=== PATIENT | male | born 1985 | race Caucasian/White ===

== ENCOUNTER 2018-02-26 12:06 | Day surgery (SDC) | payer OTHER ==
[~2018-02-26] VITALS: Ht 172.7 cm; Wt 82.1 kg
--- NOTE | ~2018-02-26 | OR ---
[facility] [address], [place] [address] Draft DATE OF OPERATION: 02/26/2018 SURGEON: Kendell Andujar MD PREOPERATIVE DIAGNOSES: 1. Clinical gastroesophageal reflux longstanding. 2. Bowel habit problems predominantly constipation. POSTOPERATIVE DIAGNOSES: 1. Small hiatal hernia with minimal esophagitis. 2. Colon without sign of abnormality, ileum normal. PROCEDURE: 1. Esophagogastroduodenoscopy with biopsy. 2. Total colonoscopy to cecum with biopsy of ileum, cecum, and rectum. ANESTHESIA: Intravenous sedation, fentanyl 200 mcg, Versed 10 mg total. INDICATION: A 32-year-old white man a patient of Bennie FLOREZ of [facility] who was referred with problems of reflux, which he described since "age 11." He takes Prilosec with reasonably good benefit for this. He has no dysphagia or hematemesis. As regard the colon, he has complaints of sometimes small bowel movements, occasionally large bowel movements. No actual diarrhea particularly, and no blood per rectum, but bowel habits that are not in keeping with his ideal. On that basis, he is admitted also for colonoscopy. He understands the risks of bleeding, infection, and perforation related to upper endoscopy, and colonoscopy and wished to proceed. FINDINGS: Upper endoscopy showed only a small hiatal hernia and minimal esophagitis. There was no evidence of H pylori, gastric outlet obstruction, or other problem. Biopsies were obtained of the duodenum, stomach and esophagus. On colonoscopy, the prep was quite excellent. Complete colonoscopy was undertaken to the cecum without question. Intubation of the ileum was accomplished as well. The ileum was normal. The colon was normal as well. Biopsies were obtained to assess for occult colitis. PATIENT NAME: ANURAG FIGUEROA OPERATIVE REPORT DATE OF : [birth year] REPORT #: [id number] PHYSICIAN: KENDELL ANDUJAR MD PCP: Bennie Nicole Jr, PA-C REPORT IS CONFIDENTIAL AND NOT TO BE RELEASED WITHOUT AUTHORIZATION [facility] [address], [place] [address] Draft DESCRIPTION OF PROCEDURE: The patient was brought to the endoscopy suite and placed in lateral decubitus position given intravenous sedation to the point of slurred speech and nystagmus. The flexible upper endoscope was passed by hypopharynx after hypopharyngeal anesthesia had been administered previously, and a bite block placed. Vocal cords appeared normal. Scope was advanced to the esophagus. Throughout its length it appeared reasonably normal including the lower part. There was no sign of Hutson's epithelium. Scope was passed in the stomach, which was insufflated with air. Stomach appeared normal as did the pylorus. The scope was passed through the pylorus into the duodenum, which was normal. Biopsies were then taken of the duodenum. The scope was withdrawn and biopsies taken of the antrum for both MAX and pathologic testing. Retroflexed view showed a small hiatal hernia. The scope was withdrawn to the distal esophagus where biopsies were obtained. Scope was further withdrawn. There were no other findings of concern. The table was rotated and additional sedation given. Digital rectal examination was performed which was normal. The GrowBLOX video colonoscope was passed in the rectum and manipulated throughout the colon ultimately intubating the cecum itself. The ileocecal valve and appendiceal orifice were normal. The scope was advanced into the ileum without too much problem. Ileum mucosa was entirely normal. Biopsies were obtained nevertheless. Scope was withdrawn. Biopsies then taken of the cecum. Further withdrawal of scope showed no sign of polyps, diverticular formation, colitis, or cancer. Rectum was normal as well. Biopsies were obtained there. Scope was removed. The patient was taken to recovery in good condition. CONCLUDING DIAGNOSES: 1. Gastroesophageal reflux with small hiatal hernia, clinically managed well with Prilosec. 2. Bowel habit changes of uncertain degree of acuity without sign of inflammatory bowel disease, neoplasm, or diverticular formation. We would recommend Citrucel 1 tablespoon daily. He will return to the ongoing care of Bennie Nicole. I will review his pathology report. If he has other problems or is in need of further assistance regarding his bowel management, he will let me know. MD DANIELA Levin/CATALINO /[id number] PATIENT NAME: ANURAG FIGUEROA OPERATIVE REPORT DATE OF : [birth year] REPORT #: [id number] PHYSICIAN: KENDELL ANDUJAR MD PCP: Bennie Nicole Jr, PA-C REPORT IS CONFIDENTIAL AND NOT TO BE RELEASED WITHOUT AUTHORIZATION [facility] [address], [place] [address] Draft cc: Bennie Nicole Jr, PA-C Copies: Bennie Nicole Jr, PA-C ~ PATIENT NAME: ANURAG FIGUEROA VIRY OPERATIVE REPORT DATE OF : [birth year] REPORT #: [id number] PHYSICIAN: KENDELL ANDUJAR MD PCP: Bennie Nicole Jr, PA-C REPORT IS CONFIDENTIAL AND NOT TO BE RELEASED WITHOUT AUTHORIZATION
[2018-02-26] MEDS ORDERED: PRILOSEC OTC20 MG PO (12:33)
--- NOTE | 2018-02-26 17:45 | NUR ---
02/26/18 8461 Kezia Marion 0732-PATIENT ARRIVED TO PACU ON 3L NC O2 SAT 94% PATIENT DROWSY OPENS EYES DENIES PAIN OR NAUSEA. ENCOURAGED TO PASS FLATUS. RR EVEN.
== END 2018-02-26 18:26 | disposition home or self-care (01) ==
LOC: OPS 12:06 → DS 12:06 → OPS 14:00 → DS 14:00 → OPS 18:26
PROVIDERS: Surgery
PROC: 0DB58ZX Excision of Esophagus, Via Natural or Artificial Opening Endoscopic, Diagnostic (ICD-10-PCS; 2018-02-26)
PROC: 0DBH8ZX Excision of Cecum, Via Natural or Artificial Opening Endoscopic, Diagnostic (ICD-10-PCS; 2018-02-26)
PROC: 0DBB8ZX Excision of Ileum, Via Natural or Artificial Opening Endoscopic, Diagnostic (ICD-10-PCS; 2018-02-26)
PROC: 0DB98ZX Excision of Duodenum, Via Natural or Artificial Opening Endoscopic, Diagnostic (ICD-10-PCS; principal; 2018-02-26 14:00)
PROC: 0DB78ZX Excision of Stomach, Pylorus, Via Natural or Artificial Opening Endoscopic, Diagnostic (ICD-10-PCS; 2018-02-26 14:00)
DX: K52.9 Noninfective gastroenteritis and colitis, unspecified (principal); K21.0 Gastro-esophageal reflux disease with esophagitis; K31.89 Other diseases of stomach and duodenum; K59.09 Other constipation; Z88.5 Allergy status to narcotic agent; Z79.899 Other long term (current) drug therapy
CPT/HCPCS: 99153; G0500; J2250; J3010; J7120

== ENCOUNTER 2018-07-05 18:00 | Inpatient (IN) | payer OTHER ==
[~2018-07-05] VITALS: Ht 172.7 cm; Wt 82.1 kg
[~2018-07-05 18:00] MED LIST: PRILOSEC OTC20 MG PO
[2018-07-17] MEDS ORDERED: PREVACID30 M1 PO (14:53)
[2018-07-17] MEDS ORDERED: TRIAMCINOLONE A80 GM TOP (14:54)
--- NOTE | 2018-07-18 15:31 | NUR ---
07/18/18 1531 Brit Cummings 1503- PT ARRIVES TO PACU FROM OR ON 6L VIA MASK O2 SATS 100%. RESP EVEN AND UNLABORED. PT RESPONDS TO VERBAL STIMULUS. PT UNABLE TO RATE PAIN USING PAIN SCALE BUT VERBALIZES "VERY PAINFUL". NATIONAL EXPANSION RECRUITER AT BEDSIDE AND MEDICATES PATEINT FOR PAIN. 25 MCG FENTANYL. OP SITE DRESSING C/D/I. SCDS ON AND APPLIED. WALL SUCTION ON TO LOW-INTERMITTENT. CORONADO CATH IN PLACE. 1505- PT TITRATED TO RA BUT SATS DROP TO 88% AFTER FENTANYL ADMINISTRATION. PT PLACED BACK ON 6 L VIA MASK. SATS REMAIN ABOVE 90%. 1516 - PT TITRATED TO 4 L NC WITH SATS ABOVE 90%. PT REPORTS CONTINUED PAIN.\\ 1520- PT MEDICATED FOR PAIN SEE EMAR.
--- NOTE | 2018-07-18 16:20 | NUR ---
NEW ADMIT TO THE FLOOR. PT AWAKE, ALERT AND ORIENTED X3. PT SITTING UP IN BED. NG TO RIGHT NARE, HOOKED UP TO LOW INTERMITTENT SUCTION, IMMEDIATE RETURN OF MABEL BLOOD IN NG CANISTER; APPROX 50ML. PT ON RA, OXYGEN SAT LEVEL 98%. VS TAKEN AND ARE STABLE. DRESSING TO STOMACH X3; LARGE MIDLINE IN WHICH IS COVERED WITH MEPILEX AND AN OBSITE; CDI. LEFT/RIGHT LATERAL ABD HAS AN ON-Q PAIN PUMP; DRESSINGS ARE OBSITE(S) AND SMALL SAROSANG DRAINAGE NOTED UNDER DRESSINGS. PT REPORTS PAIN LEVEL IS TOLERABLE AT THIS TIME; GOAL IS 4/10. AT BEDSIDE. CORONADO INTACT, PATENT AND DRAINING APPROP. PT ORIENTED TO ROOM AND CALL LIGHT. NO NEEDS. WILL CONTINUE TO MONITOR PT.
--- NOTE | 2018-07-18 16:47 | NUR ---
ICE GIVEN TO PT. PT AWAKE, HOB ELEVATED. PERSONAL SUPPLIES WITHIN REACH OF PT. SCD'S INTACT.
--- NOTE | 2018-07-18 17:13 | NUR ---
OFFICE HELPER STARTED, EDUCATION PROVIDED TO PT. PT REPORTING 5/10 ABD PAIN. PT ON RA, RESP EVEN AND NON LABORED, 02 SAT LEVEL IS 97% ON RA. PERSONAL SUPPLIES AND CALL LIGHT WITHIN REACH. HOB ELEVATED IN HIGH FOWLERS POSITION. PT RESTING ON AND OFF. PERSONA SUPPLIES AND CALL LIGHT WITHIN REACH.
--- NOTE | 2018-07-18 17:18 | NUR ---
PT RESTING, EYES CLOSED. PT REMAINS ON RA, RESP EVEN AND NON LABORED, SAT LEVEL IS 98% ON RA. PT APPEARS COMFORTABLE, WITHOUT NOTABLE PAIN. HOB ELEVATED. CORONADO INTACT, PATENT AND DRAINING CLEAR YELLOW URINE. PERSONAL SUPPLIES AND CALL LIGHT WITHIN REACH OF PT. NO NEEDS AT THIS TIME.
--- NOTE | 2018-07-18 17:56 | NUR ---
PT ON RA. NG TO RIGHT NARE; LIS. DILAUDID SUPERVISOR BLOOD. VS STABLE. HYPO BT. CLEAR LIQUID DIET; TOLERATING ICE CHIPS.
--- NOTE | 2018-07-18 18:15 | NUR ---
PT SLEEPING ON/OFF, RESPIRATIONS EVEN AND NON LABORED. OXYGEN SAT LEVEL IS 98%. CORNOADO INTACT, PATENT AND CLEAY YELLOW URINE. PERSONAL SUPPLIES AND CALL LIGHT WITHIN REACH.
--- NOTE | 2018-07-18 19:20 | NUR ---
RECEIVED REPORT FROM PANFILO SANTOS. VITAL SIGNS TAKEN. MEPILEX COVERING INCISION, SLIGHT AMOUNT OF SHADOWING. REPORTS CAMPUS RECRUITER IS COVERING PAIN. WHITEBOARD UPDATED. CALL LIGHT WITHIN REACH.
--- NOTE | 2018-07-18 19:40 | NUR ---
CALL LIGHT ON. pt REPORTING "CHEST PAIN". EXPLAINED THAT PAIN FEELS LIKE HE HAS TO BURP. NG TUBE DRAINING BROWN LIQUID. pt ABLE TO BURP AND REPORTED FEELING BETTER AND THAT "CHEST PAIN" WAS RESOLVING. INSTRUCTED TO CALL AGAIN IF HE HAD SIMILAR PRESSURE AGAIN.
--- NOTE | 2018-07-18 20:29 | NUR ---
ASSESSMENT AND MEDICATIONS DUE. ASSESSMENT DONE. pt DENIES "CHEST PAIN". RATES PAIN 1 TO 4/10. MEPLEX SHOWS SLIGHT SHADOWING OTHERWISE, C/D/I. SPITTING UP RED MUCUS. pt HAD EPISODE OF PAIN IN CENTER OF CHEST AFTER DRINKING WATER. PAIN RESOLVED AFTER BELCHING. EDUCATED ON TEMPERATURE OF LIQUIDS AND TAKING IT SLOW. CORONADO CARE DONE. VITALS SIGNS TAKEN. PUNCTURE SITES FOR ON-Q COVERED WITH OPSITE C/D/I. PISTON MAKER BUTTON WITHIN REACH. SCDS ON. CALL LIGHT WITHIN REACH. NO FURTHER REQUESTS AT THIS TIME.
--- NOTE | 2018-07-18 23:42 | NUR ---
ROUNDED ON pt. REPORTED THAT PRESSURE IN STOMACH HAS EASED AND HE WILL CALL IF IT INCREASED. NG TUBE WAS IRRIGATED WITH 20 MLS WATER BY PANFILO UNDERWOOD. SUCTION IS ON LOW INTERMITTENT. CALL LIGHT WITHIN REACH.
--- NOTE | 2018-07-19 00:10 | NUR ---
MEDICATION DUE. GIVEN (SEE MAR). ASSESSMENT DONE. STATES PAIN IS CONTROLLED BY DRAWBRIDGE TENDER, DISCOMFORT IN CHEST FROM GAS. NO REQUESTS AT THIS TIME. CALL LIGHT WITHIN REACH.
--- NOTE | 2018-07-19 02:02 | NUR ---
VITALS AND I&OS DONE AND CHARTED. BEDSIDE TABLE AND CALL LIGHT IN REACH. PT NEEDS NOTHING AT THSI TIME.
--- NOTE | 2018-07-19 02:52 | NUR ---
PATIENT CALLED WITH C/O NAUSEA. 8MG OF IV ZOFRAN GIVEN. WILL HAVE PATIENT'S RN RE-EVALUATED IN 30N MINUTES.
--- NOTE | 2018-07-19 03:09 | NUR ---
KJ RN, IN ROOM. RECEIVED UPDATE ON pt CONDITION. pt REPORTS NAUSEA IS "GETTING BETTER". NG TUBE IRRIGATED WAS NOT EFFECTIVE. ON LOW INTERMITTENT SUCTION. DRAINING WELL. CALL LIGHT WITHIN REACH.
--- NOTE | 2018-07-19 04:11 | NUR ---
CALL LIGHT ON. pt REPORTED NG TUBE WAS NOT DRAINING. PLACEMENT VERIFIED WITH AIR. FLUSHED WITH 10 MLS OF WATER. REPOSITIONED TUBE TO USE GRAVITY FOR ASSISTANCE. NG TUBE DRAINING WELL, LIS. CALL LIGHT WITHIN REACH. NO FURTHER REQUESTS AT THIS TIME.
--- NOTE | 2018-07-19 05:07 | NUR ---
pt AWAKE MOST OF SHIFT. ON 2 L O2 VIA NC. NG TO RIGHT NARE, LIS. DILAUDID VIDEOTAPE SALES REPRESENTATIVE. HYPOACTIVE BOWEL TONES. CLEAR LIQUID DIET, TOLERATING ROOM TEMP WATER. NAUSEA MEDS X1. CORONADO, U/O QS. D5LR RUNNING AT 85 MLS/HR. SCDS. USES CALL LIGHT APPROPRIATELY.
--- NOTE | 2018-07-19 05:52 | NUR ---
ASSESSMENT DONE. MEDICATION GIVEN (SEE MAR). STATES PAIN IS "OKAY". NG IN RIGHT NARE, DRAINING TO LIS. NO REQUESTS AT THIS TIME. CALL LIGHT WITHIN REACH.
--- NOTE | 2018-07-19 06:01 | NUR ---
VITALS AND I&OS DONE AND CHARTED. BEDSIDE TABLE AND CALL LIGHT IN REACH.
--- NOTE | 2018-07-19 07:30 | NUR ---
PT AWAKE, IN BED IN HIGH FOWLERS POSITION. NG INTACT TO RIGHT NARE; LIS. RETURN OF DARK COFFEE COLORED STOMACH CONTENT DRAINING APPROP AT THIS TIME. PT REPORTING PAIN IS TOLERABLE IN ABD. NUMERICAL CONTROL PROGRAMMER DILAUDID IN USE; ONGOING EDUCATION PROVIDED. DRESSING TO ABD; CDI. ON-Q PUMP INTACT TO L/R LATERAL ABD. IV FLUIDS INFUSING. CORONADO INTACT, PATENT AND DRAINING CLEAR YELLOW URINE. PERSONAL SUPPLIES AND CALL LIGHT WITHIN REACH.
--- NOTE | 2018-07-19 09:15 | NUR ---
PATIENT IN BED WATCHING TV. VITAL SINGS AND I&O DONE. CALL LIGHT WITHIN REACH. NO OTHER NEEDS AT THIS TIME
--- NOTE | 2018-07-19 09:29 | NUR ---
PT AMBULATED IN HALLWAY WITH 1PA. PT TOLERATED WALK VERY WELL; 4 LAPS AROUNDS NURSES STATION AT THIS TIME.
--- NOTE | 2018-07-19 10:20 | NUR ---
SPOKE WITH NURSING STAFF. PATIENT IS INDEPENDENT AND HAS NO KNOWN NEED FOR CASE MANAGMENT AT THIS TIME. WILL DEFER ASSESSMENT. CONSULT WILL BE PUT IN IF NEED ARISES.
[2018-07-19] MEDS ORDERED: METAMUCIL660 GM PO (10:25)
--- NOTE | 2018-07-19 10:26 | NUR ---
MED REC COMPLETE WITH REFILL HISTORY AND PATIENT INTERVIEW.
--- NOTE | 2018-07-19 11:55 | NUR ---
PT REPORTED NG NOT FLUSHING. FLUSHED NG WITH 30ML FREE WATER; IMMEDIATE RETURN UPON CONNECTION LOW INTERMITTENT WALL SUCTION. PT REPORTS FEELING SOME PRESSURE RELIEF. PT SPITTING IMTERMITTENTLY SMALL AMOUNTS OF PINK ORAL SUCRETIONS. PT REPORTING NG TUBE IS VERY BOTHERSOME TO HIM. PT ALSO REPORTING CORONADO IS BOTHERSOME TO HIM WELL, " IT IS BURNING". WILL MONITOR PT. ENCOURAGED PT TO TRY NOT TO MOVE THE TUBES AROUND FOR COMFORT. TORADOL ADMIN AT THIS TIME FOR PAIN.
--- NOTE | 2018-07-19 12:35 | NUR ---
PT SITTING UP IN BED-ALERT, ORIENTED AND SUPPORTED BY HIS . PT RATHER MATTER OF FACT APPROACH TO ANSWERS. WHEN HE DISCOVERED MY TITLE, HE QUICKLY STATED HE IS "Bebe" AND POLITELY THANKED ME FOR COMING IN. EXTENDED A BLESSING, WILL FOLLOW NEEDED
--- NOTE | 2018-07-19 13:36 | NUR ---
PATIENT RESTING IN BED. IN ROOM. VITAL SIGNS AND I&O DONE. LOW OUTPUT. RN NOTIFIED. CALL LIGHT WITHIN REACH. NO OTHER NEEDS AT THIS TIME
--- NOTE | 2018-07-19 15:00 | NUR ---
PT COMPLAINT OF PAIN FROM CORONADO CATH, REQUESTING IT TO BE REMOVED. DR. ANDUJAR CALLED VERBAL ORDER TO DC CORONADO CATH AND DC NG TUBE, RBOV.
--- NOTE | 2018-07-19 15:15 | NUR ---
CORONADO REMOVED PER DOC ORDER. 9ML NS REMOVED FROM BALLOON. PT TOLERATED WELL, CAT TIP INTACT. NG ALSO REMOVED AT THIS TIME PER DOC ORDER; PT TOLERATED WELL ALSO. CATH TIP INTACT. PT REPORTING ABD PAIN OF 4/10, MANAGER GAME UTILIZED AT THIS TIME PER PT. PT IMMEDIATELY REPORTING SENSATION TO VOID. URINAL SUPPLIED. PERSONAL SUPPLIES AND CALL LIGHT WTIHIN REACH OF PT.
--- NOTE | 2018-07-19 16:20 | OR ---
[facility] [address], [place] [address] Signed DATE OF OPERATION: 07/18/2018 SURGEON: Kendell Andujar MD PREOPERATIVE DIAGNOSES: 1. Medically refractory gastroesophageal reflux with small hiatal hernia. 2. Episodic spontaneous regurgitation. POSTOPERATIVE DIAGNOSES: 1. Medically refractory gastroesophageal reflux with small hiatal hernia. 2. Episodic spontaneous regurgitation. PROCEDURES: 1. Hill repair (reconstruction of the gastroesophageal junction with posterior gastropexy). 2. Intraoperative manometrics. 3. Placement of On-Q pain pump catheter. ANESTHESIA: General endotracheal. ANESTHESIOLOGIST: Eduardo Parkinson CRNA. 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 and is a patient of GAUTAM Cohen, of [place], [place]. The patient has had rather significant long-standing essentially lifelong reflux problems. This includes spontaneous regurgitation in certain body positions and need for cyclic use of PPI medication. He has had no associated dysphagia. His evaluation included an upper endoscopy which confirmed small hiatal hernia and chronic distal esophagitis, but no evidence of Hutson epithelium as well as video esophagram confirming normal motility grossly but "massive reflux" as well as small hiatal hernia. He was admitted at this time to undergo Hill posterior gastropexy as a method of repair. He understands the risks of bleeding, infection, failure of the operation, long-term failure, dysphagia-either short or long-term, and nose are other alternatives to antireflux operation including laparoscopic approaches. Understanding this, he wished to proceed. Electronically Signed By: KENDELL ANDUJAR MD 07/19/18 3889 PATIENT NAME: ANURAG FIGUEROA OPERATIVE REPORT DATE OF : [birth year] REPORT #: [id number] PHYSICIAN: KENDELL ANDUJAR MD PCP: Bennie Nicole Jr, PA-C REPORT IS CONFIDENTIAL AND NOT TO BE RELEASED WITHOUT AUTHORIZATION [facility] [address], [place] [address] Signed FINDINGS: There was a fair amount of intra-abdominal fat, but not in excessive amount. The abdominal wall fat was not deep at all. The GE junction was somewhat patulous except in 2-3 cm in the esophageal hiatus. Anterior and posterior vagal nerve trunks were identified and preserved. Generous phrenoesophageal bundles were noted and the reconstructed GE junction was palpably quite optimal. Intraoperative manometric showed a peak pressure approximately 25 mmHg over a 4 cm segment with an optimal waveform. The spleen was normal as was the pancreas and the stomach and duodenum. There were no other intra-abdominal findings of concern. DESCRIPTION OF PROCEDURE: The patient was brought to the operating room, given a general endotracheal anesthetic. Preoperative antibiotic Ancef was given. Sequential compression device stockings used and heparin subcutaneously administered. A Fay catheter was placed. The abdomen was already partially clipped by the patient apparently. The abdomen was clipped and prepared with a chlorhexidine solution and draped sterilely. An incision was made inferior to the xiphoid and cephalad to the umbilicus. Dissection carried through 1.5 inches of abdominal wall fat, identifying easily the midline fascia. The abdomen was entered without problem. Intra-abdominal inspection showed no sign of ascites or carcinomatosis or other problems. Palpation of the GE junction did not confirm a nasally placed manometric nasogastric tube. This was later dealt with more fully. Invagination of the GE junction showed it to accommodate 2-3 fingers consistent with small hiatal hernia. Palpation of the spleen showed no posterior capsular adhesions. A small rolled laparotomy pack was placed behind it. An upper hand retractor was placed and the falciform ligament freed from the anterior abdominal wall as was the falciform ligament to the diaphragm itself. The left lateral segment of liver was freed with electrocautery. The lesser sac was incised and with due-care division extended cephalad toward the GE junction. There was a small phrenic vein branch directly onto the esophagus. This was dissected free with a right angle clamp and secured with 3-0 silk tie as well as 2 small clips and was divided allowing for more full dissection in the area. A Bookwalter retractor was attached to the lower aspect of the table. A malleable retractor was used to retract the left lateral segment to the right incorporating also the caudate lobe of the liver. The vena cava was widely exposed in this area. Using blunt electrocautery dissection, the phrenoesophageal ligament was freed from the right sky of the diaphragm, extended cephalad over the top of the esophagus. All due care was maintained to avoid trauma to the esophagus or surrounding structures. A Audrey clamp was applied to the proximal left sky of the diaphragm and the posterior Electronically Signed By: KENDELL ANDUJAR MD 07/19/18 0829 PATIENT NAME: ANURAG FIGUEROA OPERATIVE REPORT DATE OF : [birth year] REPORT #: [id number] PHYSICIAN: KENDELL ANDUJAR MD PCP: Bennie Nicole Jr, PA-C REPORT IS CONFIDENTIAL AND NOT TO BE RELEASED WITHOUT AUTHORIZATION [address] [address] Signed attachment of the fundus to the diaphragm taken down (gastrophrenic phrenoesophageal bundle tissue) freed completely. Additional effort was taken to free the fundus of the stomach from the natural peritoneal folds of the peritoneal cavity to the superior pole of the spleen. A hook retractor was used to elevate the GE junction more fully. Freeing more fully the left sky. The preaortic fascia was dissected free down to its most inferior extent as bounded by the transverse portion of the pancreas. Meticulous care was maintained to dissect the esophagus free from the crural attachments and extending up into the mediastinum at least 5-10 cm. Anterior and posterior vagal nerve trunks were identified and preserved. By this point, the left and right crura were completely freed as was the distal esophagus and GE junction from surrounding attachments. Generous phrenoesophageal bundles were maintained on the left side and the right side (posterior) aspects. The left and right crura of the diaphragm were easily able to be exposed for closure. Various manipulations were made by the electronic repair troubleshooter to position the nasogastric manometric decompressive tube for intraoperative manometrics. Despite many efforts, it was not possible and therefore the catheter was placed orally and positioned into the stomach more fully. The left and right sky of the diaphragm were reapproximated with interrupted 0 silk suture with Shekhar felt pledgets soaked in Betadine. Index finger was able to be passed alongside the esophagus confirming that the closure was not excessively tight. [place] clamps were placed on the anterior and posterior phrenoesophageal bundles and plans made for posterior gastropexy. Using #1 Ethibond suture with Shekhar felt pledgets soaked in Betadine, a 5 such repair sutures were placed. This included a seromuscular bite of the stomach, the left front esophageal bundle, the right posterior bundle, and the preaortic fascia, which was elevated by a stay suture used to approximate the crura. I sometimes do place a Jose Enrique cervical dilator beneath the preaortic fascia. This appeared to me a more optimal approach in this situation. Five such sutures were placed in the technique of Ricardo and secured with a . Palpation showed an optimal flap valve in relation to the manometric nasogastric tube. Plans were then made for intraoperative manometrics. Using an arterial blood pressure catheter device, pullout pressures were undertaken showing a peak pressure of approximately 25 mmHg over a 4-5 cm intra-abdominal segment. Once a durable waveform was confirmed, the sutures were more fully secured with multiple throws and repeat Electronically Signed By: KENDELL ANDUJAR MD 07/19/18 1620 PATIENT NAME: ANURAG FIGUEROA OPERATIVE REPORT DATE OF : [birth year] REPORT #: [id number] PHYSICIAN: KENDELL ANDUJAR MD PCP: Bennie Nicole Jr, PA-C REPORT IS CONFIDENTIAL AND NOT TO BE RELEASED WITHOUT AUTHORIZATION [facility] [address], [place] [address] Signed pullout pressure undertaken. A durable waveform which was optimal and peak pressure was noted. Silk sutures of 2-0 Shekhar felt pledgets were used to pexy the fundus of the stomach to the crura, to the tendinous portion of the diaphragm so as to avoid postoperative fundic herniation through the esophageal hiatus. Palpation of the resultant flap valve showed it to be quite optimal. The posterior laparotomy pack behind the spleen was removed. Irrigation was undertaken and plans were then made for placement of On-Q pain pump catheters. The Jake clamps were applied to the fascial layer on the left side and subsequent to the right side. Plan for placement of an Angiocatheter beneath the subcostal margin just below the peritoneal level. The catheters were placed without problem. Plans were then made for closure. The midline fascia was reapproximated with running bidirectional #1 PDS suture. The subcutaneous tissue was irrigated fully. The skin closed with running subcuticular 3-0 Vicryl. Steri-Strips were applied as was a Mepilex silver sponge dressing. The On-Q pain pump catheters have been flushed and were secured to the Marcaine pump device. Those catheters were secured in a coil with OpSite as well. The patient was ultimately extubated and transferred to recovery room in good condition having suffered no known complications. Blood loss as well less than 50 mL, more likely of 25 mL or less really. There was a small amount of blood noted within the nasogastric tube, which would not be considered unusual considering the considerable manipulation of the manometric tube to allow for intraoperative manometrics. MD DANIELA Levin/CATALINO /[id number] cc: Bennie Nicole Jr, PA-C Electronically Signed By: KENDELL ANDUJAR MD 07/19/18 1620 PATIENT NAME: ANURAG FIGUEROA OPERATIVE REPORT DATE OF : [birth year] REPORT #: [id number] PHYSICIAN: KENDELL ANDUJAR MD PCP: Bennie Nicole Jr, PA-C REPORT IS CONFIDENTIAL AND NOT TO BE RELEASED WITHOUT AUTHORIZATION [facility] [address] [place], [place] [address] Signed Copies: Bennie Nicole Jr, PA-C ~ Electronically Signed By: KENDELL ANDUJAR MD 07/19/18 1620 PATIENT NAME: ANURAG FIGUEROA VIRY OPERATIVE REPORT DATE OF : 81 REPORT #: [id number] PHYSICIAN: KENDELL ANDUJAR MD PCP: Bennie Nicole Jr, PA-C REPORT IS CONFIDENTIAL AND NOT TO BE RELEASED WITHOUT AUTHORIZATION
--- NOTE | 2018-07-19 16:54 | NUR ---
PATIENT IN BED. IN ROOM. IV COVERED. PATIENT TAKES A SHOWER. LINENS CHANGED. PATIENT BACKS TO BED. CALL LIGHT WITHIN REACH. NO OTHER NEEDS AT THIS TIME
--- NOTE | 2018-07-19 17:45 | NUR ---
PT ON RA. COLLECTION CLERK DILAUDID. CPOX. NG AND CORONADO REMOVED. HYPOACTIVE BT. PT 1P STANDBY ASSIST IN HALLWAYS. SHOWERED TODAY. DRESSING TO ABD CDI. ON-Q INTACT TO ABD.
--- NOTE | 2018-07-19 17:55 | NUR ---
PT IN BED, SITTING UP. PT TO RA, RESP EVEN AND NON LABORED. MANAGER ORDER DILAUDID IN USE FOR PAIN. PERSONAL SUPPLIES AND CALL LIGHT WITHIN REACH.
--- NOTE | 2018-07-19 17:58 | NUR ---
PATIENT RESTING IN BED. IN ROOM. VITAL SIGNS AND I&O DONE. CALL LIGHT WITHIN REACH. NO OTHER NEEDS AT THIS TIME
--- NOTE | 2018-07-19 19:12 | NUR ---
RECEIVED REPORT FROM PANFILO SANTOS. pt REPORTED 10/23 PAIN. EDUCATED ON PAIN MANAGEMENT. AT BEDSIDE. CALL LIGHT WITHIN REACH. WHITEBOARD UPDATED.
--- NOTE | 2018-07-19 20:25 | NUR ---
CALL LIGHT ON. pt REPORTED "FEELING LIKE I HAVE A FEVER". TEMPERATURE TAKEN 99.2. TORADOL GIVEN. pt REQUESTED ZOFRAN. SCHEDULED MED GIVEN (SEE MAR). ASSESSMENT DONE. AT BEDSIDE. CALL LIGHT WITHIN REACH.
--- NOTE | 2018-07-19 22:27 | NUR ---
ROUNDED ON pt. STATED PAIN IS "OKAY", RATED 3/10. EMPTIED URINAL. REQUESTED A SMALL PILLOW, WILL TRY TO FIND SOMETHING. CALL LIGHT WITHIN REACH.
--- NOTE | 2018-07-20 02:59 | NUR ---
ROUNDED ON pt. ASSESSMENT DONE. pt REPORTED TROUBLE SLEEPING. PAIN IS BEING WELL CONTROLLED BY BRIDAL SERVICE SALES AND MANAGEMENT. REPORTED FEELING LIKE HE HAD A FEVER, TEMP 98.9. REASSURED. O2 94% ON 1 L VIA NC. HR = 111. AT BEDSIDE. CALL LIGHT WITHIN REACH.
--- NOTE | 2018-07-20 04:39 | NUR ---
CALL LIGHT ON. IV PUMP BEEPING. NEW BAG OF IV FLUIDS HUNG. NO REQUESTS AT THIS TIME. CALL LIGHT WITHIN REACH
--- NOTE | 2018-07-20 05:29 | NUR ---
pt RESTED ON AND OFF. ON 1 L VIA NC SATS DIPPED WHILE SLEEPING. CLINICAL LABORATORY ASSISTANT DILAUDID. CPOX. HYPOACTIVE BOWEL TONES. SBA. DRESSING TO ABDOMEN C/D/I NO NEW SHADOWING. ON-Q INTACT. pt REPORTED FEELING "FEVERISH" AND HAVING "FEVER DREAMS" TEMPERATURE NORMAL. TORADOL X1, ZOFRAN X1. USES CALL LIGHT APPROPRIATELY.
--- NOTE | 2018-07-20 06:48 | NUR ---
PATIENT WALKED TO BATH ROOM WITH 1 P ASSIST. ICE PACK WAS GIVEN, COLD RAG GIVEN , CALL LIGHT IN REACH.
--- NOTE | 2018-07-20 07:20 | NUR ---
BEDSIDE HANDOFF REPORT RECEIVED FROM CHILD SUPPORT AGENT RN. PT RESTING IN BED. PT COMPLAINT OF HEADACHE AND NASAL CONGESTION. O2 SATS 92% ON ROOM AIR, CONTINUOUS PULSE OX IN PLACE. PT DENIES OTHER NEEDS AT THIS TIME.
--- NOTE | 2018-07-20 07:55 | NUR ---
PT RESTIING IN BED. PT COMPLAINT OF HEADACHE AND ABD PAIN /, GIVEN 30MG TORADOL. PT COMPLAINT OF NASAL CONGESTION "I HAVE BLOOD CLOTS IN MY NOSE THAT I CAN'T GET OUT, IT IS MAKING IT DIFFICULTY TO BREATHE THROUGH MY NOSE", HUMIDIFICATION ADDED TO OXYGEN. PT ENCOURAGED TO USE I/S. O2 SATS 94% ON 1L NCE, LUNG SOUNDS CLEAR WITH DIMINISHED BASES. PT SPITTING UP BLOOD TINGED SECRETIONS. PT WIHTOUT EDEMA, CMS INTACT. PT REQUEST TO HAVE BREAK FROM SCDS. PT WITH CUSTOMER SERVICE TECHNICIAN PUMP, ON-Q PUMP X2 TO BILATERAL ABD. MIDLINE INCISION WITH SHADOWING AT BOTTOM OF DRESSING. REPORT OF NAUSEA BUT DENIES EMESIS, BOWEL TONES HYPOACTIVE. DISCUSSED PLAN OF CARE FOR THE DAY, PT ENCOURAGED TO AMBULATE IN TATE.
--- NOTE | 2018-07-20 08:20 | NUR ---
PATIENT IN BED. AM CARE REFUSED. CALL LIGHT IN REACH. NO FURTHER NEEDS AT THIS TIME .
--- NOTE | 2018-07-20 09:43 | NUR ---
PT RESTIGN IN BED, WALKED 3 LAPS IN TATE. PT STATES PAIN A LITTLE BETTER, CONTINUES TO COMPLAIN OF HEADACHE. PT DENIES OTHER NEEDS AT THIS TIME.
--- NOTE | 2018-07-20 09:58 | NUR ---
PATIENT IN BED TALKING ON PHONE. CALL LIGHT IN REACH. NO FURTHER NEEDS AT THIS TIME. SHOWER MAYBE LATER.
--- NOTE | 2018-07-20 12:30 | NUR ---
PT ASSISTED TO BATHROOM, SBA. DILAUDID UNDERWRITING DIRECTOR DISCONTINUED, PROVIDED WITH 4 MG PO DILAUDID AND 650MG LIQUID TYLENOL, PT RATING PAIN 6/10. PT ENCOURAGED TO WALK IN [place]TA[place], AGREED. PT DENIES OTHER NEEDS AT THIS TIME.
--- NOTE | 2018-07-20 13:15 | NUR ---
PATIENT AMBULATED IN [facility], [facility]. PATIENT NOW BACK TO BED AND IS ASKING FOR NAUSIA MEDS, R NOTIFIED. CALL LIGHT IN REACH. NO FURTHER NEEDS AT THIS TIME.
--- NOTE | 2018-07-20 13:20 | NUR ---
PT REQUESTING ANTINAUSEA MEDICATION, GIVEN 4 MG IV ZOFRAN. PT RESTING IN BED, COMPLETED WALK IN [facility] WITH MARKET DEVELOPMENT SPECIALIST. PT DENIES OTHER NEEDS AT THIS TIME.
--- NOTE | 2018-07-20 14:06 | NUR ---
PATIENT IN BED RESTING WITH EYES CLOSED. ICE PACK REFILLED. CALL LIGHT IN REACH. NO FURTHER NEEDS AT THIS TIME.
--- NOTE | 2018-07-20 15:52 | NUR ---
PT RESTING IN BED, DISCUSSED MEDICATIONS AND WHAT TO EXPECT FOR DISCHARGE. DR. ANDUJAR TO BEDSIDE, ORDER TO SALINE LOCK IV, ENCOURAGE FULL LIQUIDS AND PO INTAKE, PLAN TO SWITCH TO TYLENOL CRUSHED. PT PROVIDED WITH APPLE SAUCE. IV SALINE LOCKED. O2 SATS 91-92% ON ROOM AIR, CONTINUE MONITORING CONT PULSE OX. PT DENIES OTHER NEEDS AT THIS TIME.
--- NOTE | 2018-07-20 17:52 | NUR ---
PT TRANSITIONED TO ORAL DILAUDID, PAIN WELL CONTROLLED. PT ON ROOM AIR, ENCOURAGE AMBULATION AND I/S, CONTINUOUS PULSE OX IN PLACE. PT ADVANCED TO FULL LIQUID DIET, TOLERATING WELL BUT IS GOING SLOWLY. PT SALINE LOCKED. DRESSING AND ONQ PUMP DC'D, STERISTRIPS IN PLACE. BOWEL TONES HYPOACTIVE DENIES FLATUS, NAUSEATED, PRN ZOFRAN. PT VOIDING QS.
--- NOTE | 2018-07-20 17:55 | NUR ---
PATIENT UP TO SHOWER. MOSTLY INDEPENDENT IN SHOWER. NEW GOWN PROVIDED. LINENS CHANGED. PATIENT AMBULATED IN HALLWAY WITH THIS A P MANAGER. NOW BACK TO BED WATCHING TV. FRESH WATER GIVEN. ICE PACK FILLED. CALL LIGHT IN REACH. NO FURTHER NEEDS AT THIS TIME.
--- NOTE | 2018-07-20 19:15 | NUR ---
PATIENT SITTING UP TO THE EDGE OF THE BED. PRN DILAUDID AND TYLENOL PROVIDED BY DAY SHIFT RN. FRESH TAP WATER PROVIDED PER PATIENT REQUEST. PATIENT DENIES FURTHER NEEDS.
--- NOTE | 2018-07-20 21:00 | NUR ---
EVENING MEDS GIVEN PER ORDER. PATIENT REPORTS SORENESS AT HIS INCISION SITE, PRN TORADOL PROVIDED. PATIENT DENIES NAUSEA. ABD IS MODERATELY DISTENDED AND TENDER, BOWEL SOUNDS HYPOACTIVE. INSICION SITE COVERED WITH STERI STRIPS AND MODERATE AMOUNT OF DRIED RED DRAINAGE. EDGES OF WOUND WELL APRROXIMATED. PATIENT DENIES HAVING ANY FLATUS, BUT REPORTS FEELING "THINGS MOVING AROUND IN THERE". ENCOURAGED PATIENT TO AMBULATE IN THE HALLWAY AND HE AGREED.
--- NOTE | 2018-07-20 22:00 | NUR ---
PATIENT MADE SEVERAL LAPS IN THE HALLWAY AND IS NOW RETURNING TO BED. REPORTS GOOD PAIN CONTROL. PULSE OX IN PLACE. SCDS ON. PATIENT DENIES NEEDS. CALL LIGHT IN REACH.
--- NOTE | 2018-07-21 00:30 | NUR ---
PATIENT SLEEPING SOUNDLY. RR 18. O2 SAT 96% ON ROOM AIR.
--- NOTE | 2018-07-21 03:07 | NUR ---
PATIENT REPORTS 5/10 ABD PAIN. PRN DILAUDID PROVIDED. PATIENT HAS BEEN ON CONTINUOUS PULSE OX THROUGHOUT THE NIGHT, STAYING >90% ON ROOM AIR. PATIENT REQUESTING TO REMOVE THE PULSE OX, WHICH RN AGREED WAS APPROPRIATE. PATIENT DENIED ANY OTHER NEEDS. CALL LIGHT IN REACH.
--- NOTE | 2018-07-21 06:19 | NUR ---
PATIENT SLEPT MOST OF THE NIGHT. NO NAUSEA. PRN DILAUDID X1 AND PRN TORADOL X1. INCISION IS WELL APPROXIMATED WITH NO NEW DRAINAGE. BOWEL SOUND HYPOACTIVE. ENCOURAGED AMBULATION. PATIENT DENIES FLATUS AND NO BM. URINE OUTPUT QS. PATIENT TOLERATING WATER AND APPLE SAUCE, CAN TRY SOFT DIET THIS AM ORDERED. IV SL. TLERATING ROOM AIR. SCDS.
--- NOTE | 2018-07-21 06:58 | NUR ---
PATIENT REPORTED 5/10 PAIN AND A HEADACHE. PRN TORADOL AND TYLENOL PROVIDED. PATIENT DENIES NAUSEA. DISCUSSED SOFT DIET OPTIONS WITH PATIENT AND ANSWERED HIS QUESTIONS. NO OTHER NEEDS AT THIS TIME. PATIENT ATTEMPTING TO SLEEP. PATIENT REQUESTING REPORT BE DONE IN HALLWAY THIS AM.
--- NOTE | 2018-07-21 07:15 | NUR ---
REPORT RECEIVED FROM PANFILO FUNES. PT RESTING WITH EYES CLOSED. BED RAILS UP. CALL LIGHT WITHIN REACH. RESPIRATIONS REGULAR RATE AND RHYTHEM.
--- NOTE | 2018-07-21 08:34 | NUR ---
PATIENT UP WALKING HALLWAYS INDEPENDENTLY.
--- NOTE | 2018-07-21 09:23 | NUR ---
MORNING ASSESSMENT AND MEDICATIONS DUE. THIS RN TO BEDSIDE. PT REPORTS 6/10 HEADACHE AND ABDOMINAL PAIN, SEE MAR FOR MEDICATION GIVEN. ASSESSMENT DONE. PT REPORTS PASSING GAS, NO BM YET, HYPOACTIVE BOWEL TONES. PT TAKING SMALL BITES OF EGGS AND SIPS OF JUICE. TOELRATING WELL, DENIES NAUSEA. NO ADDITIONAL REQUESTS OR COMPLAINTS AT THIS TIME. PT TALKING TO FRIENDS ON PHONE, STATES "I HOPE TO GO HOME TODAY." CALL LIGHT WITHIN REACH.
--- NOTE | 2018-07-21 09:44 | NUR ---
PATIENT IN BED ON THE PHONE. CALL LIGHT IN REACH. NO FURTHER NEEDS AT THIS TIME.
--- NOTE | 2018-07-21 10:30 | NUR ---
THIS RN TO ROOM TO CHECK ON PT. PT UP IN HALLS TO WALK, WALKING INDEPENDANTLY AND REPORTS "ONLY" 1/10 PAIN "LIKE TIGHTNESS" IN ABDOMEN AND STATES HIS HEADACHE "IS GONE." PT ENCORUAGED TO CONTINUE AMBULAITON AND TRACK NUMBER OF LAPS ON WHITE BORD. PT STATES HE HAS NO ADDITIONAL REQUESTS OR COMPLAINTS AT THIS TIME.
--- NOTE | 2018-07-21 11:11 | NUR ---
THIS RN TO ROOM TO CHECK ON PT. PT RESTING WITH EYES CLOSED, RESPIRATIONS REGULAR RATE AND RHYTHEM. HAZARDOUS WASTE REMOVER AT BEDSIDE. CALL LIGHT WITHIN REACH. NO ADDITIONAL REQUESTS OR COMPLAINTS AT THIS TIME.
[2018-07-21] MEDS ORDERED: MAPAP325 MG PO (12:28)
[2018-07-21] MEDS ORDERED: HYDROMORPHONE HC4 MG PO (12:28)
--- NOTE | 2018-07-21 12:57 | DS ---
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 The patient of GAUTAM Sanders of [place], [place]. The patient has had longstanding significant essentially lifelong reflux problems including spontaneous regurgitation and need for cyclic use of PPI medication. He is admitted to undergo Hill repair (posterior gastropexy with intraoperative manometrics) for reconstruction of gastroesophageal junction. Upper endoscopy has been performed confirming a small hiatal hernia and chronic distal esophagitis, but he has no evidence of Hutson's epithelium. Video esophagram confirmed normal motility, but "massive reflux." PERTINENT PHYSICAL EXAM: GENERAL: Well-developed, well-nourished, muscular white man who looks to be in no acute distress. HEENT: Trachea is midline. CHEST: Clear without wheeze or rhonchi. HEART: Regular without murmur. ABDOMEN: Soft, nondistended. HOSPITAL COURSE: On July 18, 2018, he underwent Hill repair by open technique. This included intraoperative manometrics. An optimal flap valve was recreated. Intraoperative manometrics confirmed a good pressure of the GE junction and good waveform as would be expected. Postoperatively, he was maintained with On-Q pain pump catheters, Dilaudid WIRE WINDER, and intravenous Tylenol and intravenous Toradol. The nasogastric tube was removed 1st postoperative day and he was begun on some liquids, which he tolerated well. He was advanced to a mechanical soft diet including eggs, pudding, applesauce, and so forth, which he tolerated well. By the day of discharge, he is ambulating well, tolerating a regular diet. He is on oral pain medication, Dilaudid and Tylenol and doing exceedingly well. He has no significant dysphagia and absolutely no reflux symptoms. FOLLOWUP PLAN: Electronically Signed By: KENDELL ANDUJAR MD 07/21/18 1257 PATIENT NAME: ANURAG FIGUEROA DISCHARGE SUMMARY DATE OF : [birth year] REPORT #: [id number] PHYSICIAN: KENDELL ANDUJAR MD PCP: Bennie Nicole Jr, PA-C REPORT IS CONFIDENTIAL AND NOT TO BE RELEASED WITHOUT AUTHORIZATION [facility] [address] [place] [id number] Signed He is to maintain a mechanical soft diet until I see him back in the office. He will return to see me in approximately a month. He is to walk on a daily basis. He should lift no more than 20 pounds for the next 4 weeks. He is permitted to return to a light duty capacity in 2 weeks, but should probably not have inmate contact for the obvious reasons until fully functional. DISCHARGE MEDICATIONS: 1. Dilaudid 4-8 mg p.o. q.3 hours p.r.n. pain, #30. 2. Tylenol 325 mg 1-2 p.o. q.6 hours as needed for pain (#90). He will continue with his Metamucil powder as needed and triamcinolone cream for topical use of psoriasis. He will discontinue omeprazole and lansoprazole. DISCHARGE DIAGNOSES: 1. Medically refractory gastroesophageal reflux, spontaneous regurgitation longstanding including hiatal hernia and normal motility. 2. Status post Hill repair (reconstruction of gastroesophageal junction with posterior gastropexy) with intraoperative manometrics on July 18, 2018. 3. Episodic psoriatic skin problems. Kendell Andujar MD JM/MODL /[id number] cc: Bennie Nicole Jr, PA-C Copies: Bennie Nicole Jr, PA-C ~ Electronically Signed By: KENDELL ANDUJAR MD 07/21/18 1257 PATIENT NAME: ANURAG FIGUEROA VIRY DISCHARGE SUMMARY DATE OF : [birth year] REPORT #: [id number] PHYSICIAN: KENDELL ANDUJAR MD PCP: Bennie Nicole Jr, PA-C REPORT IS CONFIDENTIAL AND NOT TO BE RELEASED WITHOUT AUTHORIZATION
--- NOTE | 2018-07-21 14:05 | NUR ---
PT READY FOR DISCHARGE. PT DRESSES SELF, VITALS TAKEN. PIV DC'D PER PROTOCOL. AT BEDSIDE. DISCHARGE INSTRUCTIONS REVIEWED WITH PT AND . PT AND VERBALIZE UNDERSTANDING AND STATE THEIR QUESTIONS HAVE BEEN ANSWERED. PHARMACY TO BEDSIDE TO REVIEW MEDICATIONS WITH PT. PT AND STATE THEIR QUESTIONS HAVE BEEN ANSWERED. NO ADDITIONAL QUESTIONS OR COMPLAINTS. PT TRANSFERES SELF TO WHEELCHAIR AND WHEELED FROM UNIT BY NURSING PERSONELL.
== END 2018-07-21 14:05 | disposition home or self-care (01) | DRG 328 ==
LOC: DSVR 07-18 08:43 → MS 07-18 10:45
PROVIDERS: ADMIT Surgery
PROC: 0BQT0ZZ Repair Diaphragm, Open Approach (ICD-10-PCS; 2018-07-18)
PROC: 0DS60ZZ Reposition Stomach, Open Approach (ICD-10-PCS; principal; 2018-07-18 10:45)
DX: K21.0 Gastro-esophageal reflux disease with esophagitis (principal); K44.9 Diaphragmatic hernia without obstruction or gangrene; K59.09 Other constipation; Z79.899 Other long term (current) drug therapy; Z88.5 Allergy status to narcotic agent; Z84.89 Family history of other specified conditions
CPT/HCPCS: 00790; 94762; J0131; J0690; J1100; J1170; J1644; J1885; J2250; J2405; J2704; J2765; J3010; J7120